=== PATIENT | female | born 1985 | race African-American/Black ===

== ENCOUNTER 2016-06-18 22:45 | Emergency (ER) | payer MEDICAID ==
[~2016-06-18] VITALS: Ht 149.9 cm; Wt 45.0 kg
[~2016-06-18 22:45] MED LIST: ASPI-1035 PO; CELL2 PO; PRAV10TA35 PO; SIRO0.5T PO
[2016-06-18] MEDS ORDERED: ACETAMINOPHEN 325MG TABLET PO STA (23:41)
[2016-06-19] LABS: DIFFERENTIAL COMMENT 1; HEMATOCRIT. 35.3 % (36.0-48.0); HEMOGLOBIN. 11.9 g/dL (12.0-16.0); MEAN CORPUSCULAR HEMOGLOBIN 28.8 pg (28.0-32.0); MEAN CORPUSCULAR HGB CONC 33.6 g/dL (31.0-37.0); MEAN CORPUSCULAR VOLUME 85.8 fL (81.0-99.0); MEAN PLATELET VOLUME 7.3 fl (7.4-10.4); PLATELET 288 x1000/uL (130-400); RED BLOOD CELL COUNT 4.11 mill/uL (4.2-5.4); RED CELL DISTRIBUTION WIDTH 13.3 % (11.6-14.6)
[2016-06-19 00:07] LABS: CHLORIDE 109 mEq/L (98-107); INDEX HEMOLYSI 1 (1-3); INDEX ICTERIC 1 (1-4); INDEX LIPEMIC 1 (1-3)
[2016-06-19 00:15] LABS: ALANINE AMINOTRANSFERASE 14 IU/L (13-61); ALBUMIN 3.8 g/dL (3.4-5.0); ANION GAP 14; CALCIUM 8.9 mg/dL (8.5-10.1); CARBON DIOXIDE 23 mEq/L (21-32); HCG SCREEN NEGATIVE; LIPASE 95 IU/L (73-393); UREA NITROGEN BLOOD 9 mg/dL (7-21); eGFR > 60 mL/min (>60)
[2016-06-19 00:20] LABS: CLARITY URINE CLOUDY (CLEAR); COLOR URINE YELLOW (YELLOW); GLUCOSE URINE NEGATIVE (NEGATIVE); KETONES URINE NEGATIVE (NEGATIVE); LEUKOCYTE ESTERASE URINE NEGATIVE (NEGATIVE); NITRITE URINE NEGATIVE (NEGATIVE); OCCULT BLOOD URINE 1+ (NEGATIVE); PH URINE 6.5 (4.5-8.0); PROTEIN URINE 2+ (NEGATIVE); SPECIFIC GRAVITY URINE 1.024 (1.005-1.030)
[2016-06-19 00:42] LABS: BACTERIA URINE NONE SEEN; SQUAMOUS EPITHELIAL CELL URINE FEW /lpf (RARE/1+); WBC URINE 0-2 /hpf (0-2)
[2016-06-19] MEDS ORDERED: HYDROCODONE/ACETAMINOPHEN 5/325MG TABLET PO ONE (01:45)
[2016-06-19 02:15] VITALS: BP 139/90
[2016-06-19 02:57] LABS: PLATELET ESTIMATE NORMAL
== END 2016-06-19 02:34 | disposition home or self-care (01) ==
LOC: ER 22:45
DX: R10.30 Lower abdominal pain, unspecified (principal); Z88.6 Allergy status to analgesic agent; Z88.5 Allergy status to narcotic agent; Z88.8 Allergy status to other drugs, medicaments and biological substances; Z79.82 Long term (current) use of aspirin; Z79.899 Other long term (current) drug therapy
CPT/HCPCS: 36415; 76830; 76856; 80053; 81001; 83690; 84703; 85025; 99285

== ENCOUNTER 2017-01-07 05:09 | Emergency (ER) | payer MEDICAID ==
[~2017-01-07] VITALS: Ht 170.2 cm; Wt 45.0 kg
[~2017-01-07 05:09] MED LIST changes: -ASPI-1035 PO; +ASPI-1159 PO
[2017-01-07] MEDS ORDERED: MORPHINE SULFATE 4 MG/ML CPJ (NOT FOR IM USE) IV STA (06:08)
[2017-01-07] MEDS ORDERED: ONDANSETRON HCL 4MG/2ML VIAL IV STA (06:08)
[2017-01-07 06:32] LABS: BASOPHILS % 0.8 % (0.0-2.0); EOSINOPHILS % 3.3 % (0.0-5.0); HEMATOCRIT. 34.7 % (36.0-48.0); HEMOGLOBIN. 11.2 g/dL (12.0-16.0); LYMPHOCYTES % 26.1 % (20.0-50.0); MEAN CORPUSCULAR HEMOGLOBIN 27.4 pg (28.0-32.0); MEAN CORPUSCULAR VOLUME 84.6 fL (81.0-99.0); MEAN PLATELET VOLUME 7.7 fl (7.4-10.4); NEUTROPHILS % 59.8 % (40.0-76.0); PLATELET 263 x1000/uL (130-400); RED CELL DISTRIBUTION WIDTH 16.4 % (11.6-14.6)
[2017-01-07 06:39] LABS: INR 1.1; PROTHROMBIN TIME 11.4 sec (9.4-11.6)
[2017-01-07 06:48] LABS: CARBON DIOXIDE 24 mEq/L (21-32); CHLORIDE 109 mEq/L (98-107); TROPONIN I 0.14 ng/mL (0.00-0.04)
[2017-01-07 07:26] LABS: HCG SCREEN NEGATIVE
[2017-01-07] MEDS ORDERED: ASPIRIN 325MG EC TABLET PO ONE (07:30)
[2017-01-07] MEDS ORDERED: IOHEXOL-350 100 ML BOTTLE ONE (08:46)
[2017-01-07] MEDS ORDERED: MORPHINE SULFATE 4 MG/ML CPJ (NOT FOR IM USE) IV ONE (09:15)
[2017-01-07 13:02] VITALS: BP 91/65
== END 2017-01-07 13:18 | disposition short-term general hospital (02) ==
LOC: ER 05:09 → CANBEDREQ 16:26
DX: I47.1 Supraventricular tachycardia (principal); R07.9 Chest pain, unspecified; R51 Headache; Z88.5 Allergy status to narcotic agent; Z88.8 Allergy status to other drugs, medicaments and biological substances
CPT/HCPCS: 36415; 71010; 71275; 80053; 83605; 83690; 83880; 84484; 84703; 85025; 85610; 85651; 86140; 86850; 86900; 86901; 93005; 96374; 96375; 96376; 99285; J2270; J2405; Q9967; Z7610